=== PATIENT | female | born 1970 | race Caucasian/White ===

== ENCOUNTER → 2020-12-23 10:04 | Outpatient (BNVA) | payer OTHER, SELFPAY | PROVIDERS: Visit Provider Obstetrics & Gynecology | DX: N93.9 Abnormal uterine and vaginal bleeding, unspecified (principal); Z20.822 Contact with and (suspected) exposure to COVID-19 | CPT/HCPCS: 87635 ==

== ENCOUNTER 2020-12-28 14:49 | Observation (INO) | payer SELFPAY ==
[2020-12-26 11:22] VITALS: BMI 36.1
--- NOTE | 2020-12-26 11:56 | ANES.PREANE2 ---
Pre-Anesthetic Assessment Pre-Anesthetic Assessment: Height/Weight: Height 1.75 m Weight 111.13 kg Preop Diagnosis: pelvic pain Proposed Procedure: Operation Date: 12/28/20 10:45 Proposed Procedures p Total Vaginal Hysterectomy 21694 n93.9(Not Applicable) - Gurjit Lr MD Familial anesthetic complications: None Social: Social History: No alcohol and No tobacco Exam: Pre-Anes Outpt Exam: alert, oriented x 3, clear to auscultation bilaterally and regular rate & rhythm Airway: Cervical ROM: WNL MP: 4 Additional comments: very small mouth opening, large tongue and neck circumference Metabolic: Metabolic: Morbid obesity Anesthetic Plan: ASA status: 2 Anesthesia: General Risk of > 500 ml blood loss (7ml/kg in children): No PFSH Anesthesia PFSH: Family History (Updated 11/22/20 @ 13:21 by Maddison Harris RN) Father Hypertension Heart disease Brother Diabetes Mother Hypertension Hyperlipidemia Breast cancer, Onset Age: 64 Denies family history of Colon cancer Ovarian cancer Clotting disorder Anesthesia complication Bleeding disorder Uterine cancer Thyroid condition Stroke Social History (Updated 12/26/20 @ 09:05 by Karime Ag) Smoking and tobacco status: never smoked Alcohol intake: never Substance/Drug Use: never Data Anesthesia Cardiac Studies: No Data to Display
[2020-12-28] VITALS (14 sets, daily range): BP systolic 114–145; BP diastolic 62–88; PULSE 72–84; RESP 14–21; TEMP 35.7–36.6; O2SAT 91–100
[2020-12-28 08:48] LABS: OR HCG Qualitative Urine Negative (Negative)
[2020-12-28] MEDS: sodium chloride 0.9% 500 ML IV (09:04)
[2020-12-28] MEDS: scopolamine 1.5 Patch 1 PATCH TRANSDERMA (09:05)
[2020-12-28] MEDS: sodium chloride 0.9% 1,000 ML 30 ML IV (09:06)
--- NOTE | 2020-12-28 09:21 | P.ANESUD_ITS ---
Pre-Anesthetic Update Pre-Anesthetic Assessment: Date of Surgery/Procedure: 12/28/20 Preop Lis gnosis: Heavy menstrual bleeding and chronic pelvic pain Proposed Procedure: Operation Date: 12/28/20 10:00 Proposed Procedures p Total Vaginal Hysterectomy 77195 n93.9(Not Applicable) - Gurjit Lr MD Any changes to Pre-Anesthetic Assessment?: No Last Intake: Intake Last Liquid Date 12/27/20 Last Liquid Time 23:00 Last Solid Date 12/27/20 Last Solid Time 15:00 Labs Last 48hrs: Laboratory Results - last 48 hr 12/28/20 08:32 Urine HCG, Qual Negative Vitals: Temperature 96.3 F L 12/28/20 09:07 Pulse Rate 78 12/28/20 09:07 Respiratory Rate 18 12/28/20 09:07 Blood Pressure 140/88 12/28/20 09:07 Blood Pressure Janina n 105 12/28/20 09:07 Pulse Oximetry 98 12/28/20 09:07 Oxygen Delivery Me thod 12/28/20 09:07 Exam: Pre-Anes Outpt Exam: alert, oriented x 3, clear to auscultation bilaterally and regular rate & rhythm Cardiac Studies: No Data to Display
[2020-12-28] MEDS: vancomycin 1,000 MG in sodium chloride 0.9% 250 ML 250 MG IV (09:28)
[2020-12-28 10:19] LABS: Basophils # 0.1 10^3/uL (0.0-0.1); Basophils % 0.9 %; Eosinophils % 0.6 %; Hematocrit 32.9 % (37.0-47.0); Hemoglobin 9.5 g/dL (11.5-15.3); Lymphocytes # 2.2 10^3/uL (0.8-4.8); Lymphocytes % 32.3 %; Mean Corpuscular HGB Conc 28.9 g/dL (30.0-36.0); Mean Corpuscular Hemoglobin 20.8 pg (28.0-34.0); Mean Platelet Volume 11.2 fL (7.4-10.4); Monocytes # 0.5 10^3/uL (0.2-0.9); Monocytes % 7.1 %; Neutrophils # 3.91 10^3/uL (1.8-7.7); Neutrophils % 58.6 %; Nucleated Red Blood Cells % 0 %; Platelet Count 403 10^3/cmm (130-400); Red Blood Count 4.57 10^6/uL (4.1-5.3); Red Cell Distribution Width 17.6 % (12.1-15.1); White Blood Count 6.7 10^3/uL (4.0-10.0)
--- NOTE | 2020-12-28 10:22 | W.PM.OPSUD ---
Surgery/Procedure H&P Update DATE OF PROCEDURE: December 28, 2020 DATE H&P PERFORMED: 12/26/20 H&P UPDATE INFORMATION: I have reviewed H&P completed within last 30 days, I have examined patient prior to procedure and No changes to prior documentation PREOP DIAGNOSIS: Heavy menstrual bleeding and chronic pelvic pain PLANNED PROCEDURE: Operation Date: 12/28/20 10:00 Proposed Procedures p Total Vaginal Hysterectomy 71627 n93.9(Not Applicable) - Gurjit Lr MD
[2020-12-28 10:39] LABS: Add Urine Microscopic? YES; Bilirubin Urine Neg (Negative); Blood Urine 2+ (Negative); Glucose Urine UA Norm (Normal); Ketones Urine Negative (Negative); Leukocyte Esterase Urine Negative (Negative); Nitrate Urine Negative (Negative); Protein Urine Neg (Negative); Specific Gravity, Urine 1.015 (1.005-1.030); Urine Appearance Clear (CLEAR); Urine Color Yellow (Yellow); Urobilinogen Urine Norm (Negative); pH Urine 5 (5-7)
[2020-12-28 10:41] LABS: Bacteria Urine 2+ /hpf; Squamous Epithelial Cell Urine 15-25 /hpf (0-5); WBC Urine 0-4 /hpf (0-5)
[2020-12-28 10:42] LABS: Add Urine Culture? No; Alanine Aminotransferase 25 U/L (0-33); Albumin Level 4.1 g/dL (3.5-5.2); Alkaline Phosphatase 117 IU/L (35-105); Anion Gap 13.3 (5-19); Aspartate Amino Transferase 19 U/L (0-32); Blood Urea Nitrogen 7 mg/dL (6-20); Calcium 8.6 mg/dL (8.5-10.5); Carbon Dioxide 25 mmol/L (22-29); Chloride 106 mmol/L (98-107); Globulin 3.2 g/dL (1.3-4.6); Glomerular Filtration Rate 75.6 mL/min (90-130); Glucose 89 mg/dL (65-115); Osmolality Calculated 287 mOsm/kg (285-295); Potassium 4.3 mmol/L (3.5-5.1); Sodium 140 mmol/L (136-145); Total Bilirubin 0.3 mg/dL (0.15-1.2); Total Protein 7.3 g/dL (6.6-8.7)
[2020-12-28] MEDS: levofloxacin-dextrose 5 % 500 MG/100 ML PREMIX 100 MG IV (10:48)
--- NOTE | 2020-12-28 12:23 | P.OP_ITS ---
Operative Report Date of procedure: December 28, 2020 Pre-op Diagnosis: Heavy menstrual bleeding and chronic pelvic pain Post-op diagnosis: same Procedure Done: Total vaginal hysterectomy with bilateral salpingo-oophorectomy Implants: None Specimens removed/disposition: Uterus, left and right fallopian tubes and ovaries Pathology: Uterus, left and right fallopian tubes and ovaries Surgeon: Gurjit Lr MD Anesthesia: General Estimated blood loss (mL): 100 IV fluids (mL): 1,000 Urine output (mL): 100 Complications: None Condition: stable Disposition: PACU Brief History: Mrs. Feliciano 50-year-old female with a history of abnormal uterine bleeding unresponsive with medical management and chronic pelvic pain. Procedure: After informed consent and risks, benefits, indications and alternatives reviewed with the patient was taken to the operating room. The patient was placed in dorsal lithotomy position prepped, and draped in the usual sterile fashion. The pre-procedure timeout verifying the correct patient, procedure, site and side, could not requirements was performed and acknowledge by the OR team. A Mast catheter was placed. A Bookwalter vaginal retractor was placed into the vagina in usual manner visualize the cervix. Cervix was grasped with a single tooth tenaculum and circumferentially infiltrated with 1% Xylocaine with epinephrine. Then cervix was circumferentially incised with bovie and the bladder was dissected off the pubovesical cervical fascia anteriorly with a sponge stick and Metzenbaum scissors. The anterior peritoneal reflection was identified and the anterior cul-de-sac was entered sharply with Metzenbaum scissors. The same procedure was performed posteriorly and a posterior colpotomy was made through the posterior cul-de-sac space without difficulty and the posterior blade of the Bookwalter vaginal retractor was advanced posteriorly into the cul-de-sac. At this time, the left and right uterosacral ligaments were isolated and ligated with 0 Vicryl. The Enseal device was placed over the uterosacral ligaments on either side and was then used in a serial fashion up through the cardinal ligaments bilaterally cross-clamped, cut, and sealed with the Enseal device. Finally, the uterine arteries were cross-clamped, cut, sealed and ligated with the Enseal device. Hemostasis was assured. The broad ligaments were then serially clamped, sealed and cut with the Enseal device on both sides. Excellent hemostasis was visualized. Both cornua were clamped, sealed and cut with the Enseal device. Then the pedicles were then suture ligated with excellent hemostasis. The uterus was excised and submitted for pathologic evaluation. No other abnormalities were noted in the pelvic cavity. Then left and right tubes and ovaries were identified clamped, sealed and cut with the Enseal device with excelent hemostasis. Both ovaries and fallopian tubes submitted to pathology. Tag sutures had been left on the remnants of the uterosacral ligaments. The right uterosacral ligament tag was placed under traction to identify the remnants of the right uterosacral ligament. A #0 PDS suture was placed to the proximal r ight uterosacral ligament and sutured to the anterior and posterior pelvic fascia beneath the vaginal cuff on the right side. Identical process was performed on the left, although some difficulty was encountered in identifying and actually suturing through the attenuated left uterosacral ligament. Both these sutures were tied to elevate the vaginal cuff. The remaining vaginal cuff mucosa and anterior and posterior fascia were then closed.The peritoneum was then closed in a pursestring fashion with 0 Vicryl suture. The patient was given indigo carmine IV. Then the vaginal cuff angles were closed with [id number] #0 Vicryl suture on both sides and transfixed with the ipsilateral cardinal and uterosacral ligaments. The remainder of the vaginal cuff was closed with #0 Vicryl in a running locked fashion. At this time, instruments were removed from the vagina at hemostasis assured. Mast catheter was then yielding clear blue urine. She was then awakened from the general anesthesia. The patient tolerated the procedure well and was taken to the PACU recovery room in a stable condition. Sponge, lap, needle and instruments counts were correct x3.
[2020-12-28] MEDS: ondansetron 2 mg/ML SDV 2 mL 4 MG IVP (12:41)
[2020-12-28] MEDS: ketorolac 30 mg/mL INJ 15 MG IVP (13:55)
--- NOTE | 2020-12-28 16:26 | ANE.PACU2 ---
Inpatient post-anesthesia follow up: Airway intact: Yes Vital signs: Temperature 97.7 F Pulse Rate 75 Respiratory Rate 17 Blood Pressure 130/77 Pulse Oximetry 95 Oxygen Delivery Me thod Room Air Oxygen Flow Rate 8 Fraction of Inspir ed Oxygen Hydration adequate: Yes Nausea and vomiting: No Pain level: 3 Mental status: Baseline
--- NOTE | 2020-12-28 17:38 | PC.NURSE ---
patient up to chair at this time, no assist, tolerated well
[2020-12-28] MEDS: dextrose 5%-lactated ringers 1,000 ML 125 ML IV (18:18)
[2020-12-28] MEDS: docusate sodium 100 mg Capsule PO (18:18)
--- NOTE | 2020-12-28 18:40 | PC.NURSE ---
Patient ambulated 2 laps in hallway with RN, no assistance needed. Patient tolerated well.
[2020-12-28] MEDS: HYDROcodone-acetaminophen 5-325 mg Tablet PO (19:10)
[2020-12-28] MEDS: ketorolac 30 mg/mL INJ IVP (21:13)
[2020-12-28] MEDS: ferrous sulfate EC 325 mg Tablet PO (21:14)
[2020-12-29] MEDS: dextrose 5%-lactated ringers 1,000 ML 125 ML IV (04:30)
[2020-12-29 04:50] VITALS: BP 129/77; PULSE 85; TEMP 37.3; O2SAT 99
[2020-12-29 04:55] LABS: Hematocrit 28.7 % (37.0-47.0); Hemoglobin 8.1 g/dL (11.5-15.3); Mean Corpuscular HGB Conc 28.2 g/dL (30.0-36.0); Mean Corpuscular Hemoglobin 20.9 pg (28.0-34.0); Mean Corpuscular Volume 74.2 fL (81-99); Mean Platelet Volume 10.8 fL (7.4-10.4); Platelet Count 340 10^3/cmm (130-400); Red Blood Count 3.87 10^6/uL (4.1-5.3); Red Cell Distribution Width 17.5 % (12.1-15.1); White Blood Count 10.2 10^3/uL (4.0-10.0)
[2020-12-29] MEDS: HYDROcodone-acetaminophen 5-325 mg Tablet PO (07:43)
[2020-12-29] MEDS: docusate sodium 100 mg Capsule PO (07:43)
[2020-12-29] MEDS: ferrous sulfate EC 325 mg Tablet PO (07:44)
--- NOTE | 2020-12-29 09:04 | P.DS_ITS ---
Discharge Providers [employer] Date of Admission: 12/28/20 14:49 Date of Discharge: 12/29/20 Attending Provider at Admission: Gurjit Lr MD Attending Provider at Discharge: Gurjit Lr MD Primary Care Provider: Breanna Francisco Reason for Visit Reason for Visit: [facility] Hospital Course Hospital Course Mrs. Feliciano 50-year-old female with a history of heavy menstrual bleeding leading to anemia unresponsive to medical management and pelvic pain. Admitted for planned total vaginal hysterectomy with bilateral salpingo-oophorectomy. Procedures were performed without complication. Overnight observation has been uneventful. She is afebrile and hemodynamically stable. Tolerating diet well. Ambulating without difficulty. Physical Exam Narrative: EXAM NARRATIVE: GA: Alert and oriented ?3. HEENT: WNL. Heart: Regular rate and rhythm. Lungs: Clear to auscultation bilaterally. 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 Extremities: No edema, no cyanosis, no calves pain. Urinary Catheter Management^: Latex Free: Cath Placed During This Visit: yes, but has since been removed by the nurse Reason for Continuing Indwelling Catheter: Decision to DC Catheter Urinary Catheter Date of Insertion: 12/28/20 Urinary Catheter Time of Insertion: 11:11 Date Urinary Catheter Removed: 12/28/20 Time Urinary Catheter Discontinued: 21:30 Discharge Data Data Completed and Pending: Pending at discharge Category Date Time Status Pathology: Surgic al [PTH] Routine Pth 12/28/20 12:30 Received Labs from last 24 hours 12/29/20 12/28/20 12/28/20 04:50 09:52 09:03 WBC 10.2 H 6.7 RBC 3.87 L 4.57 Hgb 8.1 L 9.5 L Hct 28.7 L 32.9 L MCV 74.2 L 72.0 L MCH 20.9 L 20.8 L MCHC 28.2 L 28.9 L RDW 17.5 H 17.6 H Plt Count 340 403 H MPV 10.8 H 11.2 H Neut % (Auto) 58.6 Lymph % (Auto) 32.3 Parke % (Auto) 7.1 Eos % (Auto) 0.6 Baso % (Auto) 0.9 Neut # (Auto) 3.91 Lymph # (Auto) 2.2 Parke # (Auto) 0.5 Eos # (Auto) 0.0 Baso # (Auto) 0.1 Nucleated RBC % (a uto) 0 Nucleated RBCs # 0.0 Sodium Potassium Chloride Carbon Dioxide Anion Gap BUN Creatinine GFR Calculation Glucose Calculated Osmolal ity Calcium Total Bilirubin AST ALT Alkaline Phosphata se Total Protein Albumin Globulin Urine Color Urine Appearance Urine pH Ur Specific Gravit y Urine Protein Urine Glucose (UA) Urine Ketones Urine Blood Urine Nitrate Urine Bilirubin Urine Urobilinogen Ur Leukocyte Lynn ase Urine RBC Urine WBC Ur Squamous Epith Cells Amorphous Sediment Urine Bacteria Blood Type O Negative Rho(D) Type Negative / 0 Antibody Screen Negative 12/28/20 12/28/20 08:47 08:47 WBC RBC Hgb Hct MCV MCH MCHC RDW Plt Count MPV Neut % (Auto) Lymph % (Auto) Parke % (Auto) Eos % (Auto) Baso % (Auto) Neut # (Auto) Lymph # (Auto) Parke # (Auto) Eos # (Auto) Baso # (Auto) Nucleated RBC % (a uto) Nucleated RBCs # Sodium 140 Potassium 4.3 Chloride 106 Carbon Dioxide 25 Anion Gap 13.3 BUN 7 Creatinine 0.8 GFR Calculation 75.6 L Glucose 89 Calculated Osmolal ity 287 Calcium 8.6 Total Bilirubin 0.3 AST 19 ALT 25 Alkaline Phosphata se 117 H Total Protein 7.3 Albumin 4.1 Globulin 3.2 Urine Color Yellow Urine Appearance Clear Urine pH 5 Ur Specific Gravit y 1.015 Urine Protein Neg Urine Glucose (UA) Norm Urine Ketones Negative Urine Blood 2+ H Urine Nitrate Negative Urine Bilirubin Neg Urine Urobilinogen Norm Ur Leukocyte Lynn ase Negative Urine RBC None Urine WBC 0-4 H Ur Squamous Epith Cells 15-25 H Amorphous Sediment Not Reportable Urine Bacteria 2+ H Blood Type Rho(D) Type Antibody Screen Vitals: Last Vital Signs Temp 99.2 F 12/29/20 04:50 Pulse 85 12/29/20 04:50 Resp 18 12/28/20 17:00 BP 129/77 12/29/20 04:50 Pulse Ox 99 12/29/20 04:50 Discharge Plan Discharge Patient Disposition: Home Condition: Stable Prescriptions: New hydrocodone-acetaminophen 5-325 mg tablet 1 tab PO Q4H PRN (Reason: pain) Qty: 30 RF: 0 ibuprofen 800 mg tablet 800 mg PO TID PRN (Reason: pain) Qty: 60 RF: 0 acetaminophen 325 mg capsule 325 mg PO Q4H PRN (Reason: fever or pain) Qty: 60 RF: 0 metoclopramide HCl [Reglan] 5 mg tablet 5 mg PO DAILY Qty: 14 RF: 0 Continued ascorbic acid (vitamin C) 500 mg tablet 500 mg PO DAILY RF: 0 venlafaxine 75 mg tablet 75 mg PO BEDTIME RF: 0 venlafaxine 150 mg capsule,extended release 24hr 150 mg PO DAILY RF: 0 buspirone 30 mg tablet 30 mg PO BID RF: 0 quetiapine [Seroquel] 200 mg tablet 200 mg PO DAILY RF: 0 quetiapine [Seroquel] 25 mg tablet 25 mg PO DAILY RF: 0 ferrous sulfate [Feosol] 325 mg (65 mg iron) tablet 325 mg PO TID RF: 0 metoprolol succinate 25 mg Tablet Extended Release 24 Hr 25 mg PO DAILY RF: 0 Discharge Orders: Discharge Order (Routine); Ordered 12/29/20 Ordered By: Gurjit Lr Referrals: Gurjit Lr MD [Physician] - (* Your 2 week incision check is on 01/10/2021 at 9:15am * Your 6 week postop appointment is 02/07/2021 at 8:45am) Discharge Diet: Usual diet Discharge Activity: Increase activity as tolerated Patient Instructions: Opioid Safety, Vaginal Hysterectomy (DC) Activity Restrictions/Additional Instructions: 1. Please call [facility] on next working day to make your post-operative appointment in 2 weeks. 2. Please stay home until you come back to the clinic on first post-operative check up. 3. Please follow instructions on your medications CAREFULLY. 4. If you have abdominal incision, do not cover it unless dressing is necessary because of drainage. OK to shower, but avoid bath. Leave steri-strips until they fall off. If they are still on one week after surgery, you may remove them. 5. If you had vaginal surgery or vaginal repair, Dr. Lr may instruct you to take SITZ bath. 6. Yellow, blood tinged odorous vaginal discharge is usually normal after hysterectomy or vaginal surgeries. 7. No sexual intercourse, tampons, or douches until you are completely released from the post-operative care. 8. Avoid constipation by eating right and maybe using some Metamucil or Milk of Magnesia. 9. All prescription refills are given during the working hours. Please do no wait till it runs out. Call the clinic at [phone] before your medication runs out. The clinic will get in touch with your doctor to prescribe medications if necessary. 10. Please remain within 40 mile radius from our hospital because emergencies do happen now and then during the post-operative period. 11. If you have stairs at home, take one step at a time slowly and minimize the number of trips. It helps to stay in one floor for the next few days. No lifting except what you can lift by one hand until you are released from the post-operative care. 12. Driving is discouraged until you are well healed. It may be 3-4 weeks before you feel strong enough to drive. You should be able to turn and look through the rear window without pain and you should be able to push the brake pedal very hard without pain before you drive. No fast rules, but SAFETY should be your primary concern. DO NOT drive if you are on sedating medications such as narcotics. 13. Call the clinic (during working hours) to make urgent appointment or go to the Emergency room, if any of the following occurs: i. Vaginal bleeding becomes heavy, more than a period. ii. Incision becomes red and sore, or drains pus. iii. Your temperature is over 100.4 or you have chill. iv. IV site becomes red and swollen (a little ``knot?? is usually OK) v. Persistent nausea and vomiting vi. Persistent constipation or diarrhea vii. Rash or allergic reaction to medications. Discharge Attestations [employer] Time Spent in Discharge Care*: greater than 30 min Coding Level of Care Code Acute [employer] Operator for Kelli Abreu
[2020-12-29 10:15] VITALS: BP 148/79; PULSE 86; RESP 17; TEMP 36.7; O2SAT 97
== END 2020-12-29 11:23 | disposition home or self-care (01) ==
LOC: OBGYN 12-29 07:10
PROVIDERS: Admitting Provider Obstetrics & Gynecology; PCP Nurse Practitioner Family; Visit Provider Obstetrics & Gynecology
PROC: (CPT 58262; principal; 2020-12-28 10:00)
DX: N93.9 Abnormal uterine and vaginal bleeding, unspecified (principal); R10.2 Pelvic and perineal pain; E66.01 Morbid (severe) obesity due to excess calories; Z68.36 Body mass index [BMI] 36.0-36.9, adult; Z82.49 Family history of ischemic heart disease and other diseases of the circulatory system; Z83.3 Family history of diabetes mellitus
CPT/HCPCS: 58262; 36415; 80053; 81001; 84703; 85025; 85027; 86850; 86900; 88307; 96365; G0378; J0330; J1100; J1200; J1885; J1956; J2405; J2704; J3010; J3370; J3490; J7030; J7040; J7050

== ENCOUNTER → 2022-10-15 14:14 | Outpatient (BNVA) | payer MEDICAID, SELFPAY | PROVIDERS: PCP Physician Assistant; Visit Provider Internal Medicine | DX: R10.2 Pelvic and perineal pain (principal); G89.29 Other chronic pain; R76.8 Other specified abnormal immunological findings in serum; M79.642 Pain in left hand; M79.641 Pain in right hand; M25.562 Pain in left knee; M17.11 Unilateral primary osteoarthritis, right knee; M79.672 Pain in left foot; M79.671 Pain in right foot; M25.50 Pain in unspecified joint; Z48.816 Encounter for surgical aftercare following surgery on the genitourinary system | CPT/HCPCS: 36415; 73120; 73560; 73620; 80053; 81001; 82550; 82607; 82784; 83516; 83735; 84100; 84443; 85025; 85651; 86140; 86160; 86162; 86200; 86235; 86255; 86376; 86431; 86704; 86803; 87340 ==

== ENCOUNTER → 2022-11-06 11:23 | Outpatient (BNVA) | payer MEDICAID, SELFPAY | PROVIDERS: PCP Physician Assistant; Visit Provider Internal Medicine | DX: M47.816 Spondylosis without myelopathy or radiculopathy, lumbar region (principal) | CPT/HCPCS: 72100 ==

== ENCOUNTER 2022-11-20 13:37 | Outpatient (CLI) | payer MEDICAID, SELFPAY ==
--- NOTE | 2022-11-20 14:30 | US_ITS ---
WS: [id number] ULTRASOUND RENAL TECHNIQUE: Ultrasound examination of both kidneys. CLINICAL INFORMATION: R31.9 - Hematuria, unspecified COMPARISON: None. FINDINGS: RIGHT: Right kidney is normal in size and appearance. Echogenicity: Normal. Hydronephrosis: None. Perinephric fluid: None. Right kidney measures: 9.8 cm x 4.9 cm x 5.0 cm. LEFT: Lobulation LEFT kidney likely incidental dromedary hump. Recommend further evaluation with contrast-e nhanced CT abdomen pelvis to exclude underlying lesion Echogenicity: Normal. Hydronephrosis: None. Perinephric fluid: None. Left kidney measures: 11.0 cm x 5.0 cm x 5.6 cm. Normal visualized aorta. US/US renal BI* [id number] IMPRESSION: 1. Lobulation LEFT kidney likely incidental dromedary hump. Recommend further evaluation with contrast-enhanced CT abdomen pelvis to exclude underlying lesio n 2. No other suspicious findings.
== END 2022-11-20 13:38 | disposition home or self-care (01) ==
PROVIDERS: PCP Physician Assistant; Visit Provider Internal Medicine
DX: R31.9 Hematuria, unspecified (principal)
CPT/HCPCS: 76770